=== PATIENT | female | born 1960 | race African-American/Black ===

== ENCOUNTER 2019-09-28 11:56 | Emergency (ER) | payer OTHER ==
[~2019-09-28] VITALS: Ht 167.6 cm; Wt 114.8 kg
[2019-09-28] MEDS ORDERED: IV NS 0.9% 500 ML BAG IV ONE (13:00)
--- NOTE | 2019-09-28 13:07 | NUR ---
abdominal pain, sob, cough, nausea. gen fatigue since last night. PT AAOX4, VSS. RR EVEN & UNLABORED. DENIES CP, DIZZINESS AT THIS TIME. PT SEEN & EVAL'D BY DR. KRAMER. PLACED ON OCCUPATIONAL HEALTH TECHNICIAN. WILL CONT TO MONITOR.
[2019-09-28 13:08] LABS: BASOPHILS % (AUTO) 0.5 % (0.0-2.0); EOSINOPHILS % (AUTO) 1.5 % (0.0-6.0); HEMATOCRIT 40 % (33-45); HEMOGLOBIN 12.9 g/dL (11.5-14.8); LYMPHOCYTES # (AUTO) 1.7 /CMM (0.8-4.8); LYMPHOCYTES % (AUTO) 26.3 % (20.0-44.0); MEAN CORPUSCULAR HGB CONC 32 g/dl (31.0-36.0); MEAN CORPUSCULAR VOLUME 89 fL (82-100); MONOCYTES # (AUTO) 0.4 /CMM (0.1-1.30); MONOCYTES % (AUTO) 6.5 % (2.0-12.0); NEUTROPHILS # (AUTO) 4.2 /CMM (1.8-8.9); NEUTROPHILS % (AUTO) 65.2 % (43.0-81.0); PLATELET COUNT (AUTO) 387 /CMM (150-450); RED BLOOD CELL COUNT(AUTO) 4.48 MIL/uL (4.0-5.2); WHITE BLOOD COUNT (AUTO) 6.5 K/uL (4.3-11.0)
[2019-09-28 13:22] LABS: CALCIUM, SERUM 9.3 mg/dL (8.5-10.1); POTASSIUM 3.5 mmol/L (3.5-5.1)
[2019-09-28] MEDS ORDERED: ONDANSETRON HCL/PF 4 MG/2 ML VIAL IV ONE (13:30)
[2019-09-28] MEDS ORDERED: FAMOTIDINE/PF INJ 20 MG/2 ML VIAL IV ONE ×2 (13:30→14:20)
[2019-09-28] MEDS ORDERED: MORPHINE SULFATE INJ 2 MG/ML DISP.SYRIN IV ONE (13:30)
[2019-09-28 13:39] LABS: ALBUMIN 3.9 g/dL (3.4-5.0); B-TYPE NATRIURETIC PEPTIDE 123 PG/ML (0-125); BILIRUBIN,DIRECT 0.1 mg/dL (0.0-0.2); BILIRUBIN,TOTAL 0.8 mg/dL (0.2-1.0); TOTAL PROTEIN, SERUM 8.1 g/dL (6.4-8.2)
[2019-09-28] MEDS ORDERED: ONDANSETRON HCL/PF 4 MG/2 ML VIAL ONE (14:19)
[2019-09-28] MEDS ORDERED: MORPHINE SULFATE INJ 2 MG/ML DISP.SYRIN ONE (14:20)
--- NOTE | 2019-09-28 14:27 | NUR ---
MEDICATED PER ERMD ORDER, PT MALINDA WELL
[2019-09-28 15:01] VITALS: BP 138/82
== END 2019-09-28 15:02 | disposition home or self-care (01) ==
LOC: ER 11:56
DX: R53.1 Weakness (principal); I10 Essential (primary) hypertension; M79.7 Fibromyalgia; Z59.0 Homelessness; Z88.0 Allergy status to penicillin
CPT/HCPCS: 36415; 80048; 80076; 83690; 83880; 84484; 85025; 93005; 96374; 96375; 99284; J2405; J3490; J7040; J2270